=== PATIENT | female | born 2000 | race Caucasian/White ===

== ENCOUNTER 2025-04-05 22:26 | Emergency (ER) | payer OTHER, SELFPAY ==
[2025-04-05 22:28] VITALS: BP 129/92
--- NOTE | 2025-04-05 23:19 | ED.GENMED ---
History of Present Illness
General
Chief Complaint: Breathing Problem
Source: patient
Exam Limitations: none
Time Seen by Provider: 04/05/25 23:03
Nursing documentation reviewed up to this point in time: agreed with
History of Present Illness
History of Present Illness:
24-year-old female with no reported chronic medical issues presents to the ER for evaluation of chest pain. Patient reports acute onset of symptoms this afternoon while she was leaving work at around 5 PM. She says symptoms have been constant and
progressive since that time. She reports a sharp pain in the left side of her chest underneath her left breast. She says it is much worse with breathing. It is also worse when she stands up. Somewhat better when she lays flat. She denies any
associated shortness of breath although she does report breathing makes the pain worse. She denies any cough or fever recently. She denies any abdominal pain, nausea, vomiting. She denies any trauma or injury. She does note that she had
transient cramping in the right calf earlier today but that seems to have resolved no current leg pain or swelling reported. She says that she had a recent long flight from [place] and returned home on March 28. She is on Vyvanse but no other
medications including denying specifically taking any control. She denies any personal history of DVT/PE or family history of such. Denies any family history of heart issues aside from stent in her elderly grandfather.
Review of Systems
Review of Systems
All Other Systems: ROS reviewed and negative except as documented in HPI and ROS
Constitutional: Denies fever or chills
EENT: Denies sore throat
Respiratory: Denies cough or trouble breathing
Cardiac: Reports chest pain; Denies palpitations or syncope
ABD/GI: Denies abdominal pain, nausea or vomiting
: Denies flank pain
Musculoskeletal: Reports muscle pain; Denies neck pain or back pain
Neurological: Denies dizzy or headache
Phy Exam
Physical Exam
Physical Exam:
General: Awake, alert, oriented x3; no acute distress
Head: Normocephalic, atraumatic
Eyes: Conjunctiva normal, sclera anicteric
Throat: Airway intact, handling secretions
Neck: Trachea midline, supple without meningismus
Lungs: Clear to auscultation bilaterally, no wheezing, rales, rhonchi
Heart: Regular rate and rhythm, no murmurs, gallops, or rubs; no reproducible chest wall tenderness
Abd: Soft, non distended, nontender
Neuro: Grossly intact
Skin: No rash in the area of concern
Extremities: No edema in extremities, no calf tenderness, equal pulses in all extremities
Scores
Heart Failure Risk
Heart Failure Risk Score: Not Applicable
Heart Score for Chest Pain Patients
STEMI patient?: No
History: Slightly or Non-Suspicious
ECG: Normal
Age: </= 45 years
Risk Factors: No Risk Factors
Troponin: </= Normal Limit
Heart Score for Chest Pain Patients: 0
Heart Score Risk: 2.5% MACE over next 6 weeks
PE Wells Score
Symptoms of DVT: Yes
No alternative diagnosis better explains the illness: Yes
Tachycardia with pulse > 100: No
Immobilization (>=3 days) or surgery within previous 4 weeks: No
Prior history of DVT or pulmonary embolism: No
Presence of hemoptysis: No
Presence of malignancy: No
Pulmonary Embolism Risk Score: 6
Probability of PE: Pt is moderate risk
Withdrawal Assessment of Alcohol
Withdrawal Assessment Completed?: Not applicable
Course
Orders/Labs/Results
Orders:
Orders
04/05/25 22:32
ECG [Electrocardiogram (*1)] Urgent
Reason for Study: Shortness of Breath
EKG- Treatment ONCE
04/05/25 23:06
Test Result ONCE
04/05/25 23:13
Complete Blood Count/With Diff Urgent
Comprehensive Metabolic Panel Urgent
HCG, Serum Qualitative Screen Urgent
Troponin I Urgent
04/05/25 23:18
CT Chest PE Study Urgent
Comment:
Reason For Exam: pleuritic left sided chest pain, recent flight
Ketorolac [Toradol] 15 mg IV NOW STA
04/05/25 23:19
0.9% Sodium Chloride 1000 ml [Nss] 1,000 ml IV BOLUS
04/05/25 23:56
PTT Urgent
Prothrombin Time Urgent
Abnormal Lab Results
04/05/25
23:13
Absolute Monos (auto) 1.2 H 10^3/uL
(0.1-0.6)
Monocytes % 16.4 H %
(1.7-9.3)
Glucose 115 H mg/dl
(70-99)
04/05/25 23:13
04/05/25 23:13
Vital Signs
Initial and Last Documented VS:
Initial Vital Signs
Temp Pulse Resp BP Pulse Ox
36.8 C 93 20 129/92 96
04/05/25 22:28 04/05/25 22:28 04/05/25 22:28 04/05/25 22:28 04/05/25 22:28
Last Documented Vital Signs
Temp Pulse Resp BP Pulse Ox
36.8 C 93 20 129/92 96
04/05/25 22:28 04/05/25 22:28 04/05/25 22:28 04/05/25 22:28 04/05/25 23:24
MDM/Problems Addressed
Differential Diagnosis Includes:
PE, costochondritis, pleurisy, GERD, pneumothorax, pneumonia, pericarditis; ACS less likely
MDM/Problems Addressed:
24-year-old female presents for evaluation of atypical pleuritic chest pain in the left chest in the setting of recent long flight from [place]. Fortunately her vital signs here are within acceptable range. Physical exam is as documented. Her EKG
in triage showed no acute ischemia. Will plan to check labs including a CBC and a CMP, coags, hCG. Will check CT chest to rule out pulmonary embolism. Check troponin. Monitor closely on telemetry and reassess after the above.
Labs reviewed: CBC and CMP unremarkable. Troponin undetectable. CT chest pending but on my initial review no acute pathology noted. Await radiology report.
CT shows no PE or any other acute abnormality�respiratory motion somewhat limited study but pretest probability relatively low and overall low clinical suspicion for a subsegmental PE. Clinical reassessment patient's vital signs remained stable.
Suspect likely costochondritis versus pleurisy. Stable for discharge, advised to trial NSAIDs, follow-up with PCP. Advised to return with any worsening symptoms. All questions answered.
*Radiology
Radiology exam reviewed: radiology read reviewed
*Pulse Oximetry
SaO2: 96
Oxygen Mode of Delivery: Room air
Patient hypoxic: no (96%)
*EKG
Interpreted by ED Provider?: Yes
Heart Rate: 79
Rate: normal
Rhythm: sinus
[place]: normal axis
Interval: normal interval
QRS Pattern: normal QRS
Ischemia: no ischemia
*Critical Care Note
Total Time (30-74mins, 75-104mins- exclusive of procedures): Not Applicable
Data Reviewed
Source: patient and family (aunt)
ED Attending Note
-
Portions of this chart may have been created with voice recognition software.� Occasional wrong word or��sound alike� substitutions may have occurred due to the inherent limitations of voice recognition software.
Discharge Plan
Departure
Patient Disposition: Home (Routine Discharge)
Date of Disposition: 04/06/25
Time of Disposition: 00:41
Patient with high blood pressure during this ER visit?: No
Discharge Problem:
Chest pain
Instructions: Chest Pain (DC)
Prescriptions:
No Action
norgestimate-ethinyl estradiol [Tri Femynor] 1 EACH tablet
1 ea PO DAILY
Referrals:
Matthew Leon, [Family Provider] - Follow up in 1 week
Activity Restrictions/Additional Instructions:
Thank you for visiting the Emergency Department at [facility].
1. Please schedule a follow up appointment as directed. Call first thing tomorrow morning to make an appointment.
2. If indicated, please take your medications as instructed and indicated on discharge paperwork.
3. If any of your symptoms do not improve, or persist, or become more severe within 6-12 hours, please return to the emergency department for further care.
4. Please return to the emergency department if you develop a headache, neck pain/stiffness, fever greater than 100.4F, chest pain, shortness of breath, persistent nausea, vomiting, slurred speech, difficulty walking, numbness/tingling, weakness,
signs of infection or any other symptoms that are worrisome to you.
Please call [phone] if you have any questions.
Interventions
Interventions:
*General Assessment Last Done: 04/05/25 22:28
Discharge Date and Time
Print Language: POLISH
[2025-04-05] MEDS: TORADOL 15 MG IV (23:26)
[2025-04-05] MEDS: NSS 1000 IV (23:27)
[2025-04-05 23:37] LABS: HCG, Serum Qualitative Screen Negative
[2025-04-05 23:41] LABS: Hematocrit 41.9 % (37.0-47.0); Hemoglobin 14.6 g/dL (12.0-16.0); Mean Corp Hgb Conc. 34.8 g/dL (33.0-37.0); Mean Corpuscular Volume 84.3 fL (81.0-99.0); Nucleated Red Blood Cells % 0 %; Platelet Count 244 10^3/uL (130-400); Red Cell Dist. Width 11.9 % (11.5-14.5)
[2025-04-05 23:50] LABS: ALT (SGPT) 19 U/L (0-35); AST (SGOT) 26 U/L (14-36); Albumin 4.7 g/dl (3.5-5.0); Alkaline Phosphatase 57 U/L (38-126); Blood Urea Nitrogen 12 mg/dl (7-17); Calcium 9.8 mg/dl (8.4-10.2); Carbon Dioxide 29 mmol/L (22-30); Chloride 103 mmol/L (98-107); Glucose 115 mg/dl (70-99); Potassium 3.8 mmol/L (3.5-5.1); Sodium 138 mmol/L (135-145); Total Protein 7.7 g/dl (6.3-8.2); eGFR > 60.00
[2025-04-05 23:55] LABS: Troponin I < 0.012 ng/ml
[2025-04-06 00:12] LABS: INR 0.94; PT 13.1 Sec (11.4-14.6)
[2025-04-06 00:13] LABS: APTT 38.0 Sec (23.4-35.0)
[2025-04-06 00:30] VITALS: BP 115/71
[2025-04-06 01:24] LABS: Absolute Neutrophils -Man Diff 3.6 10^3/uL (1.4-6.5)
[2025-04-06 01:25] LABS: Normal RBC Morphology Yes
[2025-04-06 01:26] LABS: Total Cells Counted 100
[2025-04-06 01:27] LABS: Platelets Checked Yes
== END 2025-04-06 01:02 | disposition home or self-care (01) ==
LOC: EMR 22:26
PROVIDERS: EMERGENCY PHYSICIAN Emergency Medicine; FAMILY PHYSICIAN Family Medicine
DX: R07.89 Other chest pain (principal); R25.2 Cramp and spasm
CPT/HCPCS: 96374; 96361; 99284; 71275; 80053; 84484; 84703; 85025; 85610; 85730; 93005; Q9967